=== PATIENT | male | born 1990 | race Caucasian/White ===

== ENCOUNTER 2023-08-08 19:07 | Emergency (ER) | payer MEDICAID ==
[~2023-08-08] VITALS: Ht 172.7 cm; Wt 106.6 kg
[2023-08-08 19:21] VITALS: BP_SYST 138; PULSE 85; RESP 16; TEMP 98.1; O2SAT 97
[2023-08-08] MEDS ORDERED: IBUP-1971 PO (19:43)
[2023-08-08] MEDS ORDERED: LIDOCAINE 1% 10 MG/ML, 20 ML MDV INJ ONE (19:45)
[2023-08-08] MEDS ORDERED: BACITRACIN 1 GM OINT TP ONE (19:45)
[2023-08-08] MEDS: DIPHTH,PERTUSS(ACELL),TET VAC 0.5 ML VIAL (Tdap) I.M. ONE (20:10)
[2023-08-08 20:18] VITALS: BP_SYST 138; PULSE 85; RESP 16; TEMP 98.1; O2SAT 97
== END 2023-08-08 20:18 | disposition home or self-care (01) ==
LOC: SED 19:07
DX: L60.0 Ingrowing nail (principal); Z79.899 Other long term (current) drug therapy
CPT/HCPCS: 90715; 99284